=== PATIENT | male | born 1945 | race Caucasian/White ===

== ENCOUNTER 2024-08-14 13:30 | Inpatient (IN) | payer MEDICARE, OTHER ==
[~2024-08-14] VITALS: Ht 177.8 cm; Wt 65.8 kg
[2024-08-14] MEDS ORDERED: CHOLECALCIFEROL 1,000 UNIT TABLET ONE (14:03)
[2024-08-14] MEDS: CHOLECALCIFEROL 1,000 UNIT TABLET PO SCH (14:07)
[2024-08-14] MEDS ORDERED: hydrALAZINE HCL 10 MG TABLET ONE (17:22)
[2024-08-14] MEDS: hydrALAZINE HCL 10 MG TABLET PO SCH (17:37)
[2024-08-14 18:54] VITALS: BP 155/73; TEMP 98.2; O2SAT 96
[2024-08-14 19:50] VITALS: BP 141/78; TEMP 98.2; O2SAT 97
[2024-08-14] MEDS ORDERED: ACETAMINOPHEN 325 MG TABLET PO PRN (20:15)
[2024-08-14] MEDS ORDERED: TEMAZEPAM 7.5 MG CAPSULE PO PRN ×2 (20:15)
[2024-08-14] MEDS ORDERED: CLONAZEPAM 0.5 MG TABLET PO PRN (20:15)
[2024-08-14] MEDS ORDERED: MAGNESIUM HYDROXIDE 30 ML LIQUID UDC PO PRN (20:15)
[2024-08-14] MEDS ORDERED: LORAZEPAM 0.5 MG TABLET PO PRN (20:15)
[2024-08-14] MEDS ORDERED: HYDR50TA62 PO (20:56)
[2024-08-14] MEDS ORDERED: SPIR25TA PO (20:56)
[2024-08-14] MEDS ORDERED: DONE10TA11 PO (20:56)
[2024-08-14] MEDS ORDERED: OMEP20CA15 PO (20:56)
[2024-08-14] MEDS ORDERED: QUET400T PO (20:56)
[2024-08-14] MEDS ORDERED: NEBI5TAB8 PO (20:56)
[2024-08-15 07:58] VITALS: BP 163/55; TEMP 98; O2SAT 96
[2024-08-15 08:10] LABS: ALANINE AMINOTRANSFERASE 21 U/L (16-63); ALBUMIN 3.5 g/dL (3.4-5.0); ALKALINE PHOSPHATASE 81 U/L (50-136); ASPARTATE AMINOTRANSFERASE 17 U/L (15-37); BILIRUBIN,DIRECT 0.3 mg/dL (0.0-0.2); CALCIUM 9.2 mg/dL (8.5-10.1); CARBON DIOXIDE 30 mmol/L (21-32); CHLORIDE 106 mmol/L (98-107); CREATININE 1.2 mg/dL (0.6-1.3); GLUCOSE 84 mg/dL (74-106); POTASSIUM 4.1 mmol/L (3.5-5.1); SODIUM SERUM 143 mmol/L (136-145); TOTAL PROTEIN, SERUM 6.8 g/dL (6.4-8.2); UREA NITROGEN, BLOOD 17 mg/dL (7-18)
[2024-08-15] MEDS ORDERED: QUETIAPINE FUMARATE 100 MG TABLET PO SCH (08:15)
[2024-08-15] MEDS: MIRTAZAPINE 15 MG TABLET PO SCH (09:34)
[2024-08-15 15:26] VITALS: BP 146/76; TEMP 98; O2SAT 96
[2024-08-15] MEDS: CARVEDILOL 6.25 MG TABLET PO SCH (17:56)
[2024-08-15 20:00] VITALS: BP 124/53; TEMP 98.7
[2024-08-15] MEDS: QUETIAPINE FUMARATE 100 MG TABLET PO SCH (20:58)
[2024-08-15] MEDS: DONEPEZIL 10 MG TABLET PO SCH (20:58)
[2024-08-15] MEDS: ATORVASTATIN 10 MG TABLET PO SCH (20:59)
[2024-08-16 07:27] LABS: BASOPHILS # (AUTO) 0.1 K/UL (0.0-0.2); BASOPHILS % (AUTO) 0.6 % (0.0-2.0); EOSINOPHILS # (AUTO) 0.2 K/uL (0.0-0.7); EOSINOPHILS % (AUTO) 1.9 % (0.0-7.0); HEMATOCRIT 48.4 % (36.7-47.1); HEMOGLOBIN 16.7 g/dL (12.5-16.3); LYMPHOCYTES % (AUTO) 35.4 % (20.5-51.5); MEAN CORPUSCULAR HEMOGLOBIN 31.7 uug (23.8-33.4); MEAN CORPUSCULAR HGB CONC 35 g/dL (32.5-36.3); MEAN CORPUSCULAR VOLUME 91.8 fL (73.0-96.2); MONOCYTES # (AUTO) 0.8 K/uL (0.1-1.30); MONOCYTES % (AUTO) 9.8 % (0.0-11.0); NEUTROPHILS # (AUTO) 4.4 K/uL (1.8-8.9); NEUTROPHILS % (AUTO) 52.3 % (38.5-71.5); PLATELET COUNT (AUTO) 287 K/uL (152-348); RED BLOOD CELL COUNT(AUTO) 5.27 MIL/uL (4.06-5.63); RED CELL DISTRIBUTION WIDTH 13.3 % (12.1-16.2); WHITE BLOOD COUNT (AUTO) 8.4 K/uL (3.6-10.2)
[2024-08-16 07:39] LABS: CALCIUM 9.4 mg/dL (8.5-10.1); CARBON DIOXIDE 28 mmol/L (21-32); CHLORIDE 106 mmol/L (98-107); CREATININE 1.3 mg/dL (0.6-1.3); GLUCOSE 100 mg/dL (74-106); MAGNESIUM 2.2 mg/dL (1.8-2.4); PHOSPHOROUS 4.1 mg/dL (2.5-4.9); POTASSIUM 4.3 mmol/L (3.5-5.1); SODIUM SERUM 142 mmol/L (136-145); UREA NITROGEN, BLOOD 20 mg/dL (7-18)
[2024-08-16] MEDS: PANTOPRAZOLE SODIUM 40 MG TABLET.DR PO SCH (07:53)
[2024-08-16 08:18] LABS: DIFFERENTIAL COMMENT 1
[2024-08-16] MEDS: SPIRONOLACTONE 25 MG TABLET PO SCH (08:49)
[2024-08-16 09:09] VITALS: BP 138/79; TEMP 98; O2SAT 94
[2024-08-16 15:33] VITALS: BP 152/79; TEMP 98; O2SAT 96
[2024-08-16 20:00] VITALS: BP 150/74; TEMP 99; O2SAT 95
[2024-08-17 07:30] VITALS: BP 157/83; TEMP 98; O2SAT 94
[2024-08-17 16:04] VITALS: BP 141/71; TEMP 98; O2SAT 98
[2024-08-17 20:00] VITALS: BP 126/71; TEMP 98.1; O2SAT 94
[2024-08-18 07:54] VITALS: BP 144/82; TEMP 98.8; O2SAT 95
[2024-08-18 16:00] VITALS: BP 149/72; TEMP 97.8; O2SAT 96
[2024-08-18 20:00] VITALS: BP 142/77; TEMP 98.9; O2SAT 94
[2024-08-19 07:57] VITALS: BP 148/88; TEMP 98; O2SAT 99
[2024-08-19] MEDS: ENSURE ENLIVE (VAN) 240 ML LIQUID PO SCH (16:27)
[2024-08-19 16:41] VITALS: BP 139/74; TEMP 98; O2SAT 98
[2024-08-20 08:10] VITALS: BP 146/63; TEMP 98.2; O2SAT 99
[2024-08-20 16:06] VITALS: BP 137/85; TEMP 98; O2SAT 99
[2024-08-20 20:00] VITALS: BP 126/81; TEMP 97.8; O2SAT 93
[2024-08-20] MEDS: MIRTAZAPINE 15 MG TABLET PO SCH (21:11)
[2024-08-21] MEDS: TEMAZEPAM 7.5 MG CAPSULE PO PRN (02:21)
[2024-08-21 08:19] VITALS: BP 178/87; TEMP 98; O2SAT 98
[2024-08-21 15:54] VITALS: BP 160/85; TEMP 98; O2SAT 96
[2024-08-21 20:35] VITALS: BP 112/68; TEMP 98.1; O2SAT 95
[2024-08-22] MEDS: MAG HYDROX/AL HYDROX/SIMETH 30 ML LIQUID UDC PO PRN (01:13)
[2024-08-22 08:04] VITALS: BP 172/88; TEMP 98; O2SAT 96
[2024-08-22 08:34] VITALS: BP 172/88
== END 2024-08-22 11:30 | disposition home or self-care (01) | DRG 885 ==
LOC: ER 13:30 → GPS 17:23
PROVIDERS: ADMIT Psychiatry & Neurology Psychiatry; ATTEND Nurse Practitioner Acute Care
DX: F33.2 Major depressive disorder, recurrent severe without psychotic features (principal); N18.30 Chronic kidney disease, stage 3 unspecified; F03.93 Unspecified dementia, unspecified severity, with mood disturbance; R45.851 Suicidal ideations; I12.9 Hypertensive chronic kidney disease with stage 1 through stage 4 chronic kidney disease, or unspecified chronic kidney disease; K21.9 Gastro-esophageal reflux disease without esophagitis; R63.4 Abnormal weight loss; I25.10 Atherosclerotic heart disease of native coronary artery without angina pectoris; Z79.899 Other long term (current) drug therapy; E78.5 Hyperlipidemia, unspecified; G47.00 Insomnia, unspecified
CPT/HCPCS: 36415; 83735; 84100; 85025; 93005